=== PATIENT | male | born 1945 | race Caucasian/White ===

== ENCOUNTER 2019-04-29 03:29 | Inpatient (IN) | payer MEDICARE, BC ==
[~2019-04-29] VITALS: Ht 175.3 cm; Wt 130.4 kg
--- NOTE | 2019-04-29 03:57 | NUR ---
Transferred from [facility] for saddle PE. Placed on cardiac and vitals signs monitors. Pt denies chest pain. Safety precautions in place.
[2019-04-29] MEDS ORDERED: morphine SULFATE 10 MG/ML, 1ML IVPush PRN (04:30)
[2019-04-29] MEDS ORDERED: ACETAMINOPHEN 325 MG TABLET PO PRN (04:30)
[2019-04-29] MEDS ORDERED: HEPARIN 5,000 UNITS/ML, 1ML IV PRN (04:30)
[2019-04-29] MEDS ORDERED: HEPARIN 5,000 UNITS/ML, 1ML IV ONE (04:30)
[2019-04-29] MEDS ORDERED: HEPARIN 25,000 UNITS/250ML PMX 250 ML IV PRN (04:30)
--- NOTE | 2019-04-29 04:39 | NUR ---
Admitting MD at bedside.
[2019-04-29] MEDS ORDERED: eliquis (04:51)
--- NOTE | 2019-04-29 04:56 | NUR ---
Attempted to call report to wet machine cutter.
--- NOTE | 2019-04-29 05:04 | NUR ---
Report given to Gina THOMPSON.
[2019-04-29 05:09] LABS: TROPONIN I 0.353 ng/mL (0.000-0.045)
[2019-04-29 05:38] VITALS: BP 145/94
[2019-04-29 08:07] VITALS: BP 127/85
[2019-04-29 10:34] LABS: TROPONIN I 0.247 ng/mL (0.000-0.045)
[2019-04-29 13:29] VITALS: BP 115/79
[2019-04-29] MEDS ORDERED: NALOXONE 1 MG/ML, 2ML ONE (16:45)
[2019-04-29] MEDS ORDERED: FENTANYL PF 100 MCG/2ML ONE ×2 (16:45)
[2019-04-29] MEDS ORDERED: LIDOCAINE 1%, 10ML ONE (16:56)
[2019-04-29 20:17] VITALS: BP 121/90
[2019-04-30 02:15] VITALS: BP 128/84
[2019-04-30] MEDS: PANTOPRAZOLE 40MG TABLET PO SCH ×2 (05:18→05:23)
[2019-04-30 05:43] LABS: BASOPHILS # (AUTO) 0.04 x10^3/uL (0-0.1); BASOPHILS % (AUTO) 1 % (0-1); EOSINOPHILS # (AUTO) 0.31 x10^3/uL (0-0.4); EOSINOPHILS % (AUTO) 4 % (1-7); LYMPHOCYTES % (AUTO) 16 % (22-44); MD NO; MEAN CORPUSCULAR HEMOGLOBIN 31.6 pg (27.5-34.5); MEAN CORPUSCULAR VOLUME 92.8 fL (81-97); MEAN PLATELET VOLUME 8.3 fL (7.4-10.4); MONOCYTES # (AUTO) 0.84 x10^3/uL (0.2-0.8); MONOCYTES % (AUTO) 11 % (2-9); NEUTROPHILS # (AUTO) 5.05 x10^3/uL (1.8-6.8); NEUTROPHILS % (AUTO) 68 % (42-75); PLATELET COUNT 161 x10^3/uL (130-400); RED BLOOD COUNT 4.87 x10^6/uL (4.38-5.82); RED CELL DISTRIBUTION WIDTH 13.7 % (9.4-14.8)
[2019-04-30 05:55] LABS: ANION GAP 7 mmol/L (5-15); CALCIUM 8.2 mg/dL (8.5-10.1); CHLORIDE 107 mmol/L (98-107); CREATININE 1.17 mg/dL (0.7-1.3)
[2019-04-30 07:40] VITALS: BP 133/84
[2019-04-30 09:02] LABS: MICROSCOPIC INDICATED
[2019-04-30 09:04] LABS: CULTURE INDICATED? YES
[2019-04-30 13:59] VITALS: BP 130/81
[2019-04-30] MEDS: TAMSULOSIN 0.4 MG CAP.ER.24H PO SCH (18:27)
[2019-04-30 19:10] VITALS: BP 114/77
[2019-05-01 03:00] VITALS: BP 110/64
[2019-05-01 05:55] LABS: BASOPHILS # (AUTO) 0.05 x10^3/uL (0-0.1); BASOPHILS % (AUTO) 1 % (0-1); EOSINOPHILS # (AUTO) 0.35 x10^3/uL (0-0.4); EOSINOPHILS % (AUTO) 5 % (1-7); LYMPHOCYTES # (AUTO) 1.24 x10^3/uL (1-3.4); LYMPHOCYTES % (AUTO) 17 % (22-44); MD NO; MEAN CORPUSCULAR HEMOGLOBIN 31.7 pg (27.5-34.5); MEAN CORPUSCULAR HGB CONC 34.3 g/dL (33.2-36.2); MEAN CORPUSCULAR VOLUME 92.3 fL (81-97); MEAN PLATELET VOLUME 8.8 fL (7.4-10.4); MONOCYTES # (AUTO) 0.77 x10^3/uL (0.2-0.8); MONOCYTES % (AUTO) 11 % (2-9); NEUTROPHILS # (AUTO) 4.99 x10^3/uL (1.8-6.8); NEUTROPHILS % (AUTO) 67 % (42-75); PLATELET COUNT 139 x10^3/uL (130-400); RED BLOOD COUNT 4.72 x10^6/uL (4.38-5.82); RED CELL DISTRIBUTION WIDTH 13.4 % (9.4-14.8)
[2019-05-01] MEDS: PANTOPRAZOLE 40MG TABLET PO SCH (06:00)
[2019-05-01 06:04] LABS: ANION GAP 3 mmol/L (5-15); CALCIUM 8.3 mg/dL (8.5-10.1); CHLORIDE 105 mmol/L (98-107)
[2019-05-01 06:05] LABS: CREATININE 1.17 mg/dL (0.7-1.3)
[2019-05-01 07:46] VITALS: BP 125/84
[2019-05-01] MEDS: TAMSULOSIN 0.4 MG CAP.ER.24H PO SCH (09:02)
[2019-05-01 13:30] VITALS: BP 131/84
[2019-05-01 20:23] VITALS: BP 106/66
[2019-05-02 02:55] VITALS: BP 108/63
[2019-05-02 04:37] VITALS: BP 108/63
[2019-05-02 04:41] VITALS: BP 108/63
[2019-05-02 04:48] LABS: BASOPHILS # (AUTO) 0.05 x10^3/uL (0-0.1); BASOPHILS % (AUTO) 1 % (0-1); EOSINOPHILS # (AUTO) 0.36 x10^3/uL (0-0.4); EOSINOPHILS % (AUTO) 5 % (1-7); LYMPHOCYTES # (AUTO) 1.46 x10^3/uL (1-3.4); LYMPHOCYTES % (AUTO) 20 % (22-44); MD NO; MEAN CORPUSCULAR HEMOGLOBIN 31.3 pg (27.5-34.5); MEAN CORPUSCULAR HGB CONC 33.4 g/dL (33.2-36.2); MEAN CORPUSCULAR VOLUME 93.5 fL (81-97); MEAN PLATELET VOLUME 8.8 fL (7.4-10.4); MONOCYTES # (AUTO) 0.79 x10^3/uL (0.2-0.8); MONOCYTES % (AUTO) 11 % (2-9); NEUTROPHILS # (AUTO) 4.49 x10^3/uL (1.8-6.8); NEUTROPHILS % (AUTO) 63 % (42-75); PLATELET COUNT 145 x10^3/uL (130-400); RED BLOOD COUNT 4.65 x10^6/uL (4.38-5.82); RED CELL DISTRIBUTION WIDTH 13.6 % (9.4-14.8)
[2019-05-02 04:57] LABS: ANION GAP 6 mmol/L (5-15); CALCIUM 8.1 mg/dL (8.5-10.1); CHLORIDE 106 mmol/L (98-107)
[2019-05-02] MEDS: PANTOPRAZOLE 40MG TABLET PO SCH (05:45)
[2019-05-02 07:56] VITALS: BP 149/65
[2019-05-02] MEDS: TAMSULOSIN 0.4 MG CAP.ER.24H PO SCH (09:41)
[2019-05-02] MEDS ORDERED: TAMS-11 PO (09:55)
[2019-05-02] MEDS ORDERED: ACET325T26 PO (09:55)
== END 2019-05-02 11:35 | disposition home or self-care (01) | DRG 167 ==
LOC: ED 03:58 → EDIP 05:03 → 5SO 05:40
PROVIDERS: ADMIT Family Medicine; ATTEND Hospitalist
PROC: 06H03DZ Insertion of Intraluminal Device into Inferior Vena Cava, Percutaneous Approach (ICD-10-PCS; principal; 2019-04-29)
DX: I26.99 Other pulmonary embolism without acute cor pulmonale (principal); I24.8 Other forms of acute ischemic heart disease; R31.0 Gross hematuria; Z96.652 Presence of left artificial knee joint; Z90.49 Acquired absence of other specified parts of digestive tract; Z79.01 Long term (current) use of anticoagulants; Z86.718 Personal history of other venous thrombosis and embolism; Z90.79 Acquired absence of other genital organ(s); R73.9 Hyperglycemia, unspecified
CPT/HCPCS: 36415; 37191; 74176; 76770; 80048; 81001; 84484; 85014; 85018; 85025; 85520; 87086; 93005; 93306; 96374; 99285; C1880; G0378; J1644; J3010; C1769; J2310